=== PATIENT | female | born 1950 | race Caucasian/White ===

== ENCOUNTER 2017-08-26 09:29 | Emergency (ER) | payer MEDICARE ==
[~2017-08-26] VITALS: Ht 162.6 cm; Wt 109.0 kg
[2017-08-26 09:31] VITALS: BP 189/84; PULSE 91; RESP 18; TEMP 97.6; O2SAT 99
[2017-08-26] MEDS ORDERED: NOVORP2 SQ (09:44)
[2017-08-26] MEDS ORDERED: LEVO88TA2 PO (09:44)
[2017-08-26] MEDS ORDERED: SIMV20TA PO (09:44)
[2017-08-26] MEDS ORDERED: METF500T PO (09:44)
--- NOTE | 2017-08-26 10:03 | PD ---
HPI Chief Complaint: Injury Time Seen by Provider: 09:46 Travel History International Travel<30 days: No Contact w/Intl Traveler<30days: No Traveled to known affect area: No History of Present Illness HPI This 67-year-old female is complaining of pain in the left ankle. She twisted her ankle and fell at the parking lot of [employer]. She was unable to get up. She scraped her right knee and is having a lot of pain in her left ankle. She has previously twisted this ankle. She is not able to bear weight PFSH Past Medical History Cardiovascular Problems: Yes (HTN) Diabetes: Yes Social History Tobacco Use: No Allergies-Medications (Allergen,Severity, Reaction): Coded Allergies: No Known Allergies (Unverified , 08/26/17) Reported Meds & Prescriptions Reported Meds & Active Scripts Active Reported Novolin R Inj (Insulin Human Regular) 1,000 Unit/10 Ml Vial 0 SQ DIRECTED Sliding Scale As Directed. Metformin (Metformin HCl) 500 Mg Tab 500 Mg PO BIDPC Simvastatin 20 Mg Tab 20 Mg PO HS Levothyroxine (Levothyroxine Sodium) 88 Mcg Tab 88 Mcg PO DAILY Review of Systems General / Constitutional: No: Fever, Chills HENT: No: Headaches Cardiovascular: No: Chest Pain or Discomfort, Palpitations Respiratory: No: Cough Gastrointestinal: No: Vomiting, Diarrhea Genitourinary: No: Urgency Musculoskeletal: Positive: Arthralgias, Pain Physical Exam Narrative GENERAL: Well-developed female SKIN: Focused skin assessment warm/dry. HEAD: Atraumatic. Normocephalic. EYES: Pupils equal and round. No scleral icterus. No injection or drainage. ENT: No nasal bleeding or discharge. Mucous membranes pink and moist. NECK: Trachea midline. No JVD. CARDIOVASCULAR: Regular rate and rhythm. No murmur appreciated. RESPIRATORY: No accessory muscle use. Clear to auscultation. Breath sounds equal bilaterally. GASTROINTESTINAL: Abdomen soft, non-tender, nondistended. Hepatic and splenic margins not palpable. MUSCULOSKELETAL: No obvious deformities. No clubbing. No cyanosis. No edema. There is an abrasion on the anterior portion of the right knee. She is able to flex and extend the knee. There is no valgus or varus instability. There is considerable swelling on the lateral aspect of the left ankle and it is quite tender. The skin is intact. Pulses normal NEUROLOGICAL: Awake and alert. No obvious cranial nerve deficits. Motor grossly within normal limits. Normal speech. PSYCHIATRIC: Appropriate mood and affect; insight and judgment normal. Data Data Last Documented VS Vital Signs Date Time Temp Pulse Resp B/P (MAP) Pulse Ox O2 Delivery O2 Flow Rate FiO2 08/26/17 09:31 97.6 91 18 189/84 (119) 99 Orders Orders Ankle, Complete ([id number]) (08/26/17 09:53) MDM Medical Decision Making Medical Screen Exam Complete: Yes Emergency Medical Condition: Yes Medical Record Reviewed: Yes Differential Diagnosis Differential includes ankle sprain, ankle fracture Narrative Course X-ray of the left ankle was obtained. There is a fracture of the distal fibula. Patient has been placed in a short leg splint and will be placed on crutches. She is to follow-up with orthopedics Diagnosis Primary Impression: Fracture of distal fibula Qualified Codes: S82.832A - Other fracture of upper and lower end of left fibula, initial encounter for closed fracture Additional Instructions: Elevate, ice, avoid weightbearing, follow up with orthopedist Disposition: 01 DISCHARGE HOME Condition: Stable Armando Dickerson MD Aug 26, 2017 10:03
--- NOTE | 2017-08-26 10:36 | RADRPT ---
EXAM DATE/TIME: 08/26/2017 10:12 [facility] COMPARISON: No previous studies available for comparison. INDICATIONS : Fall, left lateral ankle pain. MEDICAL HISTORY : None. SURGICAL HISTORY : None. ENCOUNTER: Initial ACUITY: 1 day PAIN SCORE: 7/10 LOCATION: Left lateral ankle FINDINGS: Three view exam was performed of the left ankle. Extensive soft tissue swelling. Avulsion fracture di stal fibula/lateral malleolus. Ankle mortise intact. No radiopaque foreign bodies are seen. Bony mi neralization is normal. CONCLUSION: 1. Avulsion fracture distal fibula/lateral malleolus. Kashmir Farfan MD on August 26, 2017 at 10:29 Board Certified Radiologist. This report was verified electronically.
== END 2017-08-26 10:55 | disposition home or self-care (01) ==
LOC: PHED 09:29
DX: S82.832A Other fracture of upper and lower end of left fibula, initial encounter for closed fracture (principal); W19.XXXA Unspecified fall, initial encounter; Y92.481 Parking lot as the place of occurrence of the external cause; Z79.899 Other long term (current) drug therapy
CPT/HCPCS: 36415; 73610; 80053; 80061; 82043; 83036; 84443; 85025; 99283

== ENCOUNTER → 2017-08-26 | Outpatient (CLI) | payer MEDICARE ==
[~2017-08-26] MED LIST: LEVO88TA2 PO; METF500T PO; NOVORP2 SQ; SIMV20TA PO
[2017-08-26 13:30] LABS: AUTOMATED NEUTROPHIL # 3.8 TH/MM3 (1.8-7.7); BASOPHIL # 0.1 TH/MM3 (0-0.2); BASOPHIL % 1.2 % (0.0-2.0); EOSINOPHIL # 0.3 TH/MM3 (0-0.4); EOSINOPHIL % 3.6 % (0.0-4.0); HEMATOCRIT 40.7 % (35.0-46.0); HEMO FLAGS DIFF FINAL; LYMPH % 35.9 % (9.0-44.0); LYMPHOCYTE # 2.5 TH/MM3 (1.0-4.8); MEAN CELL VOLUME 92.4 FL (80.0-100.0); MEAN CORPUSCULAR HEMOGLOBIN 31.8 PG (27.0-34.0); MEAN CORPUSCULAR HGB CONC 34.4 % (32.0-36.0); MONO % 5.7 % (0.0-8.0); NEUT % 53.6 % (16.0-70.0); PLATELET COUNT 232 TH/MM3 (150-450)
[2017-08-26 13:55] LABS: ALT (GPT) 39 U/L (10-53); ANION GAP 10 MEQ/L (5-15); AST (GOT) 29 U/L (15-37); BICARBONATE 23.3 MEQ/L (21.0-32.0); BLOOD UREA NITROGEN 13 MG/DL (7-18); CHLORIDE 104 MEQ/L (98-107); GLOMERULAR FILTRATION RATE 70 ML/MIN (>89); GLUCOSE,FASTING 187 MG/DL (74-99); POTASSIUM 4.1 MEQ/L (3.5-5.1); SODIUM (NA) 137 MEQ/L (136-145)
[2017-08-26 14:05] LABS: ALKALINE PHOSPHATASE 61 U/L (45-117); HDL CHOLESTEROL 45.5 MG/DL (40.0-60.0); LDL CHOLESTEROL 43 MG/DL (0-99); TOTAL BILIRUBIN ADULT 0.5 MG/DL (0.2-1.0)
[2017-08-26 18:14] LABS: HEMOGLOBIN A1b 2.5 %; HEMOGLOBIN Ao 80.4 %; HEMOGLOBIN LA1C 2.4 %
== END ==
LOC: PLAB 08:49
DX: E11.9 Type 2 diabetes mellitus without complications (principal); E03.9 Hypothyroidism, unspecified; E78.5 Hyperlipidemia, unspecified
CPT/HCPCS: 36415; 80053; 80061; 82043; 83036; 84443; 85025

== ENCOUNTER → 2017-12-06 | Outpatient (CLI) | payer MEDICARE ==
[2017-12-06 14:05] LABS: CHOLESTEROL 206 MG/DL (120-200)
[2017-12-06 14:11] LABS: AST (GOT) 18 U/L (15-37); BICARBONATE 23.3 MEQ/L (21.0-32.0); BLOOD UREA NITROGEN 14 MG/DL (7-18); CALCIUM 9.5 MG/DL (8.5-10.1); CHLORIDE 101 MEQ/L (98-107); CREATININE 0.88 MG/DL (0.50-1.00); GLOMERULAR FILTRATION RATE 64 ML/MIN (>89); GLUCOSE,FASTING 212 MG/DL (74-99); SODIUM (NA) 136 MEQ/L (136-145)
[2017-12-06 14:15] LABS: ALKALINE PHOSPHATASE 81 U/L (45-117); ALT (GPT) 29 U/L (10-53); CHOLESTEROL/ HDL RATIO 4.32 RATIO; HDL CHOLESTEROL 47.6 MG/DL (40.0-60.0); LDL CHOLESTEROL 82 MG/DL (0-99); TOTAL BILIRUBIN ADULT 0.3 MG/DL (0.2-1.0); TOTAL PROTEIN 7.8 GM/DL (6.4-8.2); TRIGLYCERIDES 381 MG/DL (42-150)
[2017-12-06 15:40] LABS: HEMOGLOBIN A1C 8.1 % (4.3-6.0)
== END ==
LOC: PLAB 08:52
DX: E11.9 Type 2 diabetes mellitus without complications (principal); E78.5 Hyperlipidemia, unspecified; E03.9 Hypothyroidism, unspecified
CPT/HCPCS: 36415; 80053; 80061; 82043; 83036; 84443

== ENCOUNTER → 2018-03-11 | Outpatient (CLI) | payer MEDICARE ==
[2018-03-11 10:57] LABS: ALT (GPT) 37 U/L (10-53); CHOLESTEROL 196 MG/DL (120-200); TRIGLYCERIDES 484 MG/DL (42-150)
[2018-03-11 11:00] LABS: ALBUMIN 4.1 GM/DL (3.4-5.0); AST (GOT) 29 U/L (15-37); BICARBONATE 23.3 MEQ/L (21.0-32.0); BLOOD UREA NITROGEN 21 MG/DL (7-18); CALCIUM 9.8 MG/DL (8.5-10.1); CHLORIDE 100 MEQ/L (98-107); CREATININE 0.99 MG/DL (0.50-1.00); GLOMERULAR FILTRATION RATE 55 ML/MIN (>89); GLUCOSE,FASTING 260 MG/DL (74-99); SODIUM (NA) 134 MEQ/L (136-145)
[2018-03-11 11:06] LABS: ALKALINE PHOSPHATASE 60 U/L (45-117); CHOLESTEROL/ HDL RATIO 4.42 RATIO; HDL CHOLESTEROL 44.3 MG/DL (40.0-60.0); TOTAL BILIRUBIN ADULT 0.6 MG/DL (0.2-1.0); TOTAL PROTEIN 7.9 GM/DL (6.4-8.2)
[2018-03-11 14:20] LABS: HEMOGLOBIN A1C 10.2 % (4.3-6.0)
== END ==
LOC: PLAB 08:24
DX: E11.9 Type 2 diabetes mellitus without complications (principal); E03.9 Hypothyroidism, unspecified; E78.2 Mixed hyperlipidemia
CPT/HCPCS: 36415; 80053; 80061; 83036; 84443